=== PATIENT | male | born 1955 | race Caucasian/White ===

== ENCOUNTER 2020-08-26 10:23 | Outpatient (RCR) | payer MEDICARE, OTHER, SELFPAY ==
[2020-08-26] MEDS: COVID-19 VACC, MRNA(PFIZER)/PF 30 MCG/0.3 ML SYRINGE IM (07:33)
[2020-09-16] MEDS: COVID-19 VACC, MRNA(PFIZER)/PF 30 MCG/0.3 ML SYRINGE IM (07:27)
== END 2020-11-25 23:59 ==
LOC: IMMUN 10:23
PROVIDERS: PCP Family Medicine; Visit Provider Family Medicine
DX: Z23 Encounter for immunization (principal)
CPT/HCPCS: 0001A; 0002A; 91300

== ENCOUNTER 2022-08-07 17:26 | Emergency (ER) | payer MEDICARE, OTHER, SELFPAY ==
[2022-08-07 17:27] VITALS: BP 165/102; PULSE 69; RESP 16; TEMP 36.6; O2SAT 98; BMI 20.4
[2022-08-07 17:43] VITALS: O2SAT 98
--- NOTE | 2022-08-07 18:42 | CT_ITS ---
INDICATION: head trauma EXAMINATION: CT BRAIN - CT Head or Brain W/O Contrast Injection TECHNIQUE: Multiple axial images were obtained of the head without intravenous contrast. A radiation dose optimization technique was used for this scan. IV Contrast dosage and agent: None. RADIATION DOSAGE (If Supplied By Facility): CTDIvol = ( 44.99 ) mGy, DLP = ( 779.24 ) mGycm COMPARISON: No relevant prior examinations for comparison FINDINGS: HEMISPHERES: 1. The cerebral parenchyma, ventricular system, subarachnoid spaces have normal configuration and density. There is a normal gyral pattern. There is normal higuera/white differentiation. No midline shift.. 2. There are mild chronic microvascular deep white matter changes. 3. No intraparenchymal mass, hemorrhage, or acute territorial infarct. CEREBELLUM - BRAINSTEM: The cerebellum, brainstem, basilar and suprasellar cisterns have normal appearance. No Chiari malformation. PITUITARY: Infundibulum and pituitary have normal configuration. Midline structures appear normal. CSF SPACES: Appropriate for age. No hydrocephalus. Basal cisterns are patent. VESSELS: 1. Moderate carotid vascular calcifications. 2. No hyperdense vascular signs noted.. ORBITS AND PARANASAL SINUSES: 1. Normal appearance of the bony orbits. Normal appearance of the globes and retrobulbar soft tissues.. 2. Moderate to extensive chronic mucosal thickening in the ethmoid complexes. BONY ELEMENTS: No evidence of fractures involving the cranial vault, orbits or skull base. Nasal skeleton appears intact however there is deformity of the nasal septum with significant 90 degree angulation and there is significant soft tissue swelling at the level of the nose. Findings are suspicious of a nasal septal fracture.. SCALP AND SOFT TISSUES: Normal appearance of the soft tissues of the scalp and the visualized face OTHER: None ASPECTS Score for Acute Strokes: 10 CT/Brain/Head without Contrast IMPRESSION: 1. 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 2. No intracranial evidence of acute traumatic injury. 3. Nasal bones appear intact. There however is significant angulation of the nasal septum suspicious of nasal septal fracture. There is significant soft tissue swelling at the nose. Orbital cha are intact. 4. Chronic ethmoid mucosal thickening is present. No walker fluid or blood identified paranasal sinuses middle ear cavities or mastoid air cells. Electronically Signed: Bigg Perera MD at 19:15 EST ,
--- NOTE | 2022-08-07 18:42 | CT_ITS ---
INDICATION: trauma EXAMINATION: CT FACIAL BONES - CT Maxillofacial W/O Contrast Injection TECHNIQUE: Helically acquired images were obtained of the facial bones. A radiation dose optimization technique was used for this scan. IV Contrast dosage and agent: None. Radiation Dose (provided by facility) CTDIvol (NA ) mGy, DLP ( NA) mGy-cm COMPARISON: CT of the head on the same date. FINDINGS: AREAS OF INTEREST: 1. Significant soft tissue swelling and bruising associated with the nose. 2. The nasal bones appear intact. There is however significant deformity of the nasal septum with 90 degree angulation in the mid bony septum consistent with nasal septal fracture. REMAINING EXAMINATION: ORBITS: 1. Normal appearance the bony cha the orbits. Soft tissue planes including preseptal and post septal soft tissue planes have normal appearance. Normal appearance of the globes, ocular lenses and optic nerves. NASAL SKELETON: As detailed above PARANASAL SINUSES: Chronic mucosal thickening in the ethmoid complexes. SKULL BASE AND ZYGOMATIC ARCHES: Normal, normal alignment, no fractures noted. VISUALIZED MANDIBLE: 1. Normal appearance of the mandibular condyles, TMJs, and the visualized mandible to the level of the symphysis. 2. The visualized dentition appears intact. OTHER: Normal appearance of the deep spaces of the head and visualized upper neck. Airway has normal appearance. CT/Sinus/Facial Bone IMPRESSION: 1. Significant soft tissue swelling/bruising at the level of the nose. The nasal bones are intact however there is deformity of the nasal septum consistent with nasal septal fracture. 2. Chronic ethmoid sinus and callosal thickening. No fluid or blood in the paranasal sinuses middle ear cavities and mastoid air cells. 3. No other evidence of maxillofacial fracture. Normal appearance the orbits. Electronically Signed: Bigg Perera MD at 19:21 EST ,
--- NOTE | 2022-08-07 18:45 | RAD_ITS ---
INDICATION: Injury/Pain EXAMINATION/TECHNIQUE: X-RAY - RIGHT XR Hand Min 3 Views 3 VIEWS COMPARISON: None. FINDINGS: SOFT TISSUES: No soft tissue swelling or gas. No radiopaque foreign body. BONES/JOINTS: No evidence of fracture or dislocation. Mild degenerative changes with osteophyte formation particularly at the 5th PIP, mild periarticular erosions are present at the 5th PIP and DIP. Similar though less extensive changes at the 4th PIP. No acute bony or joint space abnormalities noted. RAD/Hand Min 3 Views IMPRESSION: 1. No acute fracture or dislocation or destructive bony process. 2. Mild degenerative changes as detailed. Electronically Signed: Bigg Perera MD at 19:11 EST ,
[2022-08-07] MEDS: Diphth,Pertuss(Acell),Tet Vac 0.5 ML Vial IM (19:28)
[2022-08-07 19:29] VITALS: RESP 16; O2SAT 97
--- NOTE | 2022-08-07 20:32 | ED.RN ---
THIS RN CALLED PHARMACY DUE TO LIDOCAINE ORDER NOT BEING STOCKED AT 2031. PHARMACY TO SEND UP VIAL.
--- NOTE | 2022-08-07 20:53 | ED.VIS.FALL ---
HPI HPI - Fall History of Present Illness Chief Complaint: Fall Informant: patient Narrative Narrative: Patient is a 67-year-old male presenting for facial injury after mechanical fall. [facility] when he tripped outside. He fell and tried to catch himself with his right hand. He is left-hand dominant. He hit his face. He had injury/trauma to his nose. His nose is not deviated to the right which is not normal for him. He did have a bloody nose but that has since resolved. He sustained a laceration to the outside of his nose. Denies any loss of conscious. Is unsure when his last tetanus was. Is not having any significant pain. No other complaints at this time. Denies any medical history. [facility] Medical History (Updated 08/07/22 @ 20:[address] Margie Renee, ) No acute medical problems Home Medications doxycycline hyclate 100 mg tablet 100 mg PO BID #14 tabs 08/07/22 [Rx Last Taken Unknown] Allergy/AdvReac Type Severity Reaction Status Date / Time Penicillins [PCN] AdvReac Hives Verified 08/07/22 17:29 Social History Smoking Status: Current every day smoker tobacco type: cigarettes ROS ROS ED Constitutional Constitutional ED: Denies chills or fever(s) Eyes Eyes: Denies change in vision ENT ENT ED: Reports other Details: Epistaxis, nose pain Cardiovascular Cardiovascular: Denies chest pain Respiratory/Chest Respiratory/Chest: Denies cough Gastrointestinal Gastrointestinal: Denies nausea or vomiting Integumentary Reports other Details: Laceration to nose Neurologic Neurologic: Denies headache(s), paresthesias or weakness Hematologic/Lymphatic Hematologic/Lymphatic: Denies easy bleeding or easy bruising EXAM Physical Exam Const Vital Signs: 08/07/22 17:27 08/07/22 17:43 08/07/22 19:29 Temperature 97.8 F Temperature Source Temporal Pulse Rate 69 Respiratory Rate 16 16 Respiratory Effort Normal Non-Labored Respiratory Depth Normal Respiratory Pattern Normal Blood Pressure 165/102 H Blood Pressure Mean 123 Pulse Ox 98 98 97 Oxygen Delivery Method Room Air Room Air Room Air 08/07/22 21:11 08/07/22 21:40 Temperature Temperature Source Pulse Rate Respiratory Rate 17 18 Respiratory Effort Respiratory Depth Respiratory Pattern Blood Pressure Blood Pressure Mean Pulse Ox Oxygen Delivery Method Room Air Positive well nourished and well developed General Appearance ED: well developed HEENT Reports normocephalic and TM's normal bilaterally HEENT Narrative: Laceration to nose over the bridge. There is significant soft tissue swelling of the nose and deviation of the nose towards the right. No active epistaxis. There is some blood noted in the posterior oropharynx with no active bleeding. No malocclusion. No trismus. No nasal septal hematoma appreciated. Eyes PERRL and EOMs intact bilaterally Neck full ROM General: Negative for tenderness Chest Wall inspection of chest normal Resp normal respiratory effort and clear to auscultation bilaterally Cardio regular rate, regular rhythm and no murmurs GI non-tender and non-distended Extremity Extremity Narrative: No pinpoint bony tenderness. No obvious deformity of the extremities. Ambulates easily. Pelvis is stable. There is some slight bruising of the right first metacarpal and MCP joints with normal range of motion. No obvious deformity. Mild tenderness to palpation of the area. Neuro oriented x3, moves all extremities, no focal motor deficits and no sensory deficits noted Psych mental status grossly normal and thought process normal Skin Skin Narrative: 2 cm L-shaped full-thickness laceration over the bridge of the nose. There is bleeding involved. MDM MDM MDM Narrative Medical decision making narrative: Patient is evaluated after mechanical fall. He struck his right thumb as well as his nose. Differential includes intracranial hemorrhage, cervical spine fracture, facial bone fracture and hand fracture. Imaging obtained which shows no acute intracranial process but does show significant soft tissue swelling/bruise in the level of the nose with nasal bone intact however there is deformity of the nasal septum consistent with a nasal septal fracture. This is consistent patient's physical exam. Patient's laceration is full-thickness and appears to go through the nasal septum. Complex laceration repair performed, see procedure note.Patient is empirically put on doxycycline (is allergic to penicillins) because of the full-thickness laceration. Tetanus is updated. He declines pain medicine in the ER. He ambulates easily. No other injuries/fractures appreciated. Case is discussed with Dr. Reyes at time of discharge who is agreeable with close outpatient follow-up. He has no further recommendations at this time. Radiography Diagnostic Testing: Clinical Impression(s) from Imaging Studies Brain CT 08/07/22 18:42 IMPRESSION: 1. 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 2. No intracranial evidence of acute traumatic injury. 3. Nasal bones appear intact. There however is significant angulation of the nasal septum suspicious of nasal septal fracture. There is significant soft tissue swelling at the nose. Orbital cha are intact. 4. Chronic ethmoid mucosal thickening is present. No walker fluid or blood identified paranasal sinuses middle ear cavities or mastoid air cells. Electronically Signed: Bigg Perera MD at 19:15 EST , Facial/Sinus 08/07/22 18:42 IMPRESSION: 1. Significant soft tissue swelling/bruising at the level of the nose. The nasal bones are intact however there is deformity of the nasal septum consistent with nasal septal fracture. 2. Chronic ethmoid sinus and callosal thickening. No fluid or blood in the paranasal sinuses middle ear cavities and mastoid air cells. 3. No other evidence of maxillofacial fracture. Normal appearance the orbits. Electronically Signed: Bigg Perera MD at 19:21 EST , Hand X-Ray 08/07/22 18:45 IMPRESSION: 1. No acute fracture or dislocation or destructive bony process. 2. Mild degenerative changes as detailed. Electronically Signed: Bigg Perera MD at 19:11 EST , Procedures Lacerations Nose: Length: 24 in Depth: Sub Q Shape: L-shaped Prep: Chlorhexadine Laceration repair: Irrigated, Lidocaine with epi, Local, Skin sutures, Subcutaneous sutures and Wound explored Irrigated (ml): 200 Suture Information: Ethilon (5-0 x 5 4 simple interrupted sutures, 1x corner suture) and - (5-0 Chromic Gut used to place 2 deep sutures.) Discharge Plan Triage Chief Complaint: Fall ED Provider: Margie Renee Dx/Rx/DC Orders Clinical Impression: Nasal septum fracture, Laceration of nose Instructions: ED Facial Fracture, ED Laceration: All Closures Prescriptions: New doxycycline hyclate 100 mg tablet 100 mg PO BID Qty: 14 0RF Primary Care Provider: Aba Alonzo Referrals: Aba Alonzo MD [Primary Care Provider] - Pavel Noland MD [Med Staff - Active Staff] - 3-5 Days Activity Restrictions/Additional Instructions: Alternate ibuprofen and Tylenol for pain. Please follow-up with ENT, for further evaluation of your nasal septal fracture and discussion for long-term management/repair. Disposition Disposition: Home, Self Care Discharge Date/Time: 08/07/22 21:41
[2022-08-07 21:11] VITALS: RESP 17
[2022-08-07] MEDS: Lidocaine 2% /Epi 1:100 (20ml) 20 ML VIAL INFILT (21:38)
[2022-08-07 21:40] VITALS: RESP 18
== END 2022-08-07 21:41 | disposition home or self-care (01) ==
PROVIDERS: Emergency Provider Emergency Medicine; PCP Family Medicine; Visit Provider Emergency Medicine
DX: S01.21XA Laceration without foreign body of nose, initial encounter (principal); S02.2XXA Fracture of nasal bones, initial encounter for closed fracture; Q21.9 Congenital malformation of cardiac septum, unspecified; F17.210 Nicotine dependence, cigarettes, uncomplicated; W01.0XXA Fall on same level from slipping, tripping and stumbling without subsequent striking against object, initial encounter; Z23 Encounter for immunization
CPT/HCPCS: 13151; 70450; 70486; 73130; 90715; 99282

== ENCOUNTER → 2022-10-25 | Outpatient (CLI) | payer MEDICARE, OTHER, SELFPAY ==
--- NOTE | 2022-10-25 09:33 | EKG12_ITS ---
Test Reason : PRE OP Blood Pressure : / mmHG Vent. Rate : 073 BPM Atrial Rate : 073 BPM P-R Int : 160 ms QRS Dur : 082 ms QT Int : 408 ms P-R-T Axes : 071 072 074 degrees QTc Int : 449 ms Sinus rhythm with Premature supraventricular complexes Nonspecific ST abnormality Abnormal ECG Confirmed by ADWOA THAO, LALA ([id number]), news video editor JAVIER MARTINEZ ([id number]) on 10/25/2022 2:48:39 PM Referred By: Yvon Noland Confirmed By:VESTA ORONA MD
== END | disposition home or self-care (01) ==
LOC: PSN 09:32
PROVIDERS: PCP Family Medicine; Referring Provider Otolaryngology; Visit Provider Otolaryngology
DX: Z01.810 Encounter for preprocedural cardiovascular examination (principal)
CPT/HCPCS: 93005

== ENCOUNTER 2025-03-21 21:10 | Emergency (ER) | payer MEDICARE, OTHER, SELFPAY ==
[2025-03-21 21:10] VITALS: BP 160/96; PULSE 70; RESP 18; TEMP 36.9; O2SAT 97; BMI 20.2
[2025-03-21] MEDS: Lidocaine 2% /Epi 1:100 (20ml) 20 ML VIAL INFILT (22:10)
--- NOTE | 2025-03-21 22:20 | CT_ITS ---
PROCEDURE: SPINE CERVICAL WITHOUT CONTRAS 03/21/2025 REASON FOR EXAM: FALL TECHNIQUE: Procedure Code: CTSPC Modality: CT Procedure: SPINE CERVICAL WITHOUT CONTRAS Coronal and Sagittal reconstruction series were provided. One or more dose reduction techniques were used (e.g., Automated exposure control, adjustment of the mA and/or kV according to patient size, use of iterative reconstruction technique. RADIATION DOSE SUMMARY: CTDlvol: 44.99, 17.40 mGy DLP: 1100 mGycm COMPARISON: None. FINDINGS: BONES: No acute fracture or focal osseous lesion. Grade 1 anterolisthesis of C3 on C4, which appears degenerative in etiology given bilateral facet arthropathy. Straightening of the normal cervical lordosis. DISCS / DEGENERATIVE CHANGES: Disc space narrowing throughout, most pronounced at C4-C5 to C6-C7. Multilevel facet arthropathy and neuroforaminal narrowing. No significant central canal stenosis. SOFT TISSUES: No prevertebral soft tissue swelling. Scattered calcified atherosclerosis. No apical pneumothorax. CT/Spine Cervical without Contras IMPRESSION: 1. No acute cervical spine fracture. 2. Straightening of the cervical spine, may reflect muscle spasm. 3. Chronic degenerative changes. Reading Location: [id number]
--- NOTE | 2025-03-21 22:20 | CT_ITS ---
PROCEDURE: BRAIN/HEAD WITHOUT CONTRAST 03/21/2025 REASON FOR EXAM: HEAD INJURY TECHNIQUE: Procedure Code: CTBR Modality: CT Procedure: BRAIN/HEAD WITHOUT CONTRAST Coronal and Sagittal reconstruction series were provided. One or more dose reduction techniques were used (e.g., Automated exposure control, adjustment of the mA and/or kV according to patient size, use of iterative reconstruction technique. RADIATION DOSE SUMMARY: CTDlvol: 44.99, 17.40 mGy DLP: 1100 mGycm COMPARISON: 08/07/2022 FINDINGS: BRAIN: No acute intraparenchymal hemorrhage. No mass lesion. No CT evidence for acute territorial infarct. No midline shift or extra-axial collection. Mild cerebral volume loss. Patchy periventricular white matter low attenuation, likely microvascular ischemic changes. VENTRICLES: No hydrocephalus. ORBITS: The orbits are unremarkable. SINUSES AND MASTOIDS: Mild ethmoid sinus mucosal thickening bilaterally, improved since the prior study. Small stable right sphenoid sinus retention cyst/polyp. The mastoid air cells are clear. SOFT TISSUES: Mild swelling and laceration in the posterior occipitpparietal parietal scalp. No radiodense foreign body. BONES: The calvarium is intact. No acute osseous abnormality seen. OTHER: Carotid siphon calcification bilaterally. Soft tissue density within the external auditory canals bilaterally, likely cerumen. CT/Brain/Head without Contrast IMPRESSION: 1. No acute intracranial abnormality. 2. Age-related senescent changes. Reading Location: [id number]
--- NOTE | 2025-03-21 22:22 | RAD_ITS ---
PROCEDURE: RIBS UNI MIN 3V W/PA CHEST 03/21/2025 REASON FOR EXAM: PAIN TECHNIQUE: Procedure Code: RADRIB Modality: DX Procedure: RIBS UNI MIN 3V W/PA CHEST COMPARISON: None. FINDINGS: LUNGS AND PLEURA: Calcified granuloma in the right lung. No pleural effusion or pneumothorax seen. HEART AND MEDIASTINUM: The heart size and mediastinal contours are normal. AORTA: Tortuous and calcified thoracic aorta. BONES: Acute fractures involving the right lateral 6th to 10th ribs with subcutaneous emphysema in the adjacent chest wall. RAD/Ribs Uni Min 3V w/PA Chest IMPRESSION: Acute right lateral 6th to 10th rib fractures with adjacent chest wall subcutan eous emphysema. No definite pneumothorax seen. Reading Location: [id number]
[2025-03-21 23:14] VITALS: BP 159/91; PULSE 87; RESP 18; O2SAT 98
--- NOTE | 2025-03-21 23:20 | CT_ITS ---
PROCEDURE: CHEST WITHOUT CONTRAST 03/21/2025 REASON FOR EXAM: RIB FRACTURES WITH ? PNEUMOTHORAX TECHNIQUE: Chest CT without contrast. Coronal and Sagittal reconstruction series were provided. One or more dose reduction techniques were used (e.g., Automated exposure control, adjustment of the mA and/or kV according to patient size, use of iterative reconstruction technique RADIATION DOSE SUMMARY: CTDlvol: 8.99 mGy DLP: 455.82 mGycm COMPARISON: Chest x-ray 03/21/2025. FINDINGS: Hardware: None. Lymph nodes: No lymphadenopathy. Heart and Vasculature: No cardiomegaly. No aortic aneurysm. Coronary Artery Calcifications: Atherosclerotic calcifications of the coronary arteries. Lungs and Airways: Ground-glass densities in the lower lobes may represent atelectasis or pneumonia. Pleura: Small right pleural effusion. No pneumothorax. Upper Abdomen: Left hydronephrosis. Bones: Acute posterior right posterior 7th, 8th and 9th ribs. CT/Chest without Contrast IMPRESSION: Coronary artery calcification (CAC) is is present Acute posterior right posterior 7th, 8th and 9th ribs. Ground-glass densities in the lower lobes may represent atelectasis or pneumoni a. Reading Location: [id number]
--- NOTE | 2025-03-22 00:47 | EDS_ITS ---
HPI History of Present Illness Chief Complaint: Fall Informant: patient and spouse/S.O. Narrative Narrative: Patient is a 69-year-old male who reports no past medical history. He states around 830 this evening he was walking up the stairs holding a glass of water when his cell phone buzzed. He states he turned to look at the cell phone and lost his balance and states he kind of rolled down the stairs. He states he believes he fell roughly 5 or 6 stairs. He states he struck his head but denied any loss of consciousness. He states he was able to get up and ambulate following the trauma. He reports pain and bleeding to his head as well as pain along the right ribs and with concern for underlying injury comes in for evaluation. [facility] Medical History (Updated 03/22/25 @ 00:[address] Laureano Dia, DO) No acute medical problems Home Medications ?Medication ?Instructions ?Recorded ?Last Taken ?Type oxycodone 5 mg tablet 5 mg PO Q6H PRN pain 5 days #20 03/22/25 Unknown Rx tabs Allergy/AdvReac Type Severity Reaction Status Date / Time Penicillins (PCN) AdvReac Hives Verified 03/21/25 21:14 Family History no significant family his Social History Smoking Status: Current every day smoker tobacco type: cigarettes ROS ROS ED Constitutional Constitutional ED: Denies chills or fever(s) Eyes Eyes: Denies blurry vision or change in vision ENT ENT ED: Denies sore throat Cardiovascular Cardiovascular: Reports other Details: Positive right rib pain Negative syncope ; Denies chest pain Respiratory/Chest Respiratory/Chest: Denies cough or dyspnea Gastrointestinal Gastrointestinal: Denies abdominal pain, diarrhea, nausea or vomiting Genitourinary Genitourinary ED: Denies dysuria Musculoskeletal Musculoskeletal: Denies back pain Integumentary Reports other Details: Positive scalp laceration Neurologic Neurologic: Denies headache(s), paresthesias or weakness Hematologic/Lymphatic Hematologic/Lymphatic: Denies easy bleeding or easy bruising EXAM Physical Exam Const Vital Signs: 03/21/25 21:10 03/21/25 21:57 03/21/25 23:14 Temperature 98.4 F Temperature Source Temporal Pulse Rate 70 87 Respiratory Rate 18 18 Respiratory Effort Short of Breath Respiratory Depth Shallow Respiratory Pattern Normal Blood Pressure 160/96 H 159/91 H Blood Pressure Mean 117 113 Pulse Ox 97 98 Oxygen Delivery Method Room Air Room Air Room Air 03/22/25 00:53 Temperature 98.4 F Temperature Source Pulse Rate 71 Respiratory Rate 18 Respiratory Effort Respiratory Depth Respiratory Pattern Blood Pressure 150/86 H Blood Pressure Mean 107 Pulse Ox 97 Oxygen Delivery Method Positive well nourished and well developed General Appearance ED: well developed HEENT HEENT Narrative: There is a vertical linear laceration along the midline lower portion of the occipital scalp that is subcutaneous layer deep with minimal ooze of blood and 5 cm in length. No retained foreign body There is a horizontal linear laceration along the left posterior parietal section of the scalp 2.5 cm in length that is also subcutaneous layer deep with minimal ooze of blood and no retained foreign body No signs of depressed or basilar skull fracture Eyes PERRL and EOMs intact bilaterally Neck supple Neck Narrative: No bony deformity or step-off of the cervical spine No midline tenderness to palpation Chest Wall Chest Narrative: There is reproducible pain in the lateral/mid axillary to posterior rib cage region 7-11 No bony deformity or crepitance Resp normal respiratory effort and clear to auscultation bilaterally Resp Narrative: Breath sounds are diminished throughout secondary to pain but overall clear to auscultation without signs of respiratory distress Cardio regular rate and regular rhythm GI normal to inspection, nondistended, normoactive bowel sounds, non-tender, non- distended and no masses GI Narrative: No overlying abrasions or ecchymosis noted Auscultation: normoactive bowel sounds Palpation: soft Back/Spine Back/Spine Narrative: No bony deformity or step-off of the thoracic or lumbar spine No midline tenderness to palpation Extremity normal to inspection Extremity Narrative: Pelvis is stable there is no shortening or external rotation of either lower extremity No signs of bony injury such as joint effusion or deformity All compartments are soft and compressible going against compartment syndrome Patient can move all extremities without pain or difficulty Neuro oriented x3, CN's II-XII intact bilaterally and no sensory deficits noted Sensorium / Orientation: alert Motor Exam: strength 5/5 throughout Psych mental status grossly normal Skin Skin Narrative: Laceration to the occipital and parietal portion of the scalp as documented above MDM MDM MDM Narrative Medical decision making narrative: Patient arrived to the ER mildly hypertensive but otherwise with stable vitals. He reported a mechanical fall and therefore I felt no need for cardiac or syncope workup. However with the head injury there is concern for traumatic subarachnoid or subdural hemorrhage or skull fracture and potentially a cervical compression fracture. With pain along the right rib cage there is also concern for rib fracture versus pneumothorax. CTs of the head and cervical spine were obtained which revealed no signs of acute trauma. X-ray of the right ribs did show multiple rib fractures with subcutaneous emphysema. In order to ensure there is no pneumothorax I did elect to perform a noncontrast CT of the chest. The better image did show rib fractures but it was less than the x-ray as this showed fractures of the 7th, 8th and 9th rib. There is no pneumothorax noted. The radiologist did mention a right sided pleural effusion but as the patient symptoms only occurred after trauma I do feel this is a pulmonary contusion. He is not on a blood thinner he is not requiring supplemental oxygen he is not in respiratory distress. We did discuss potential admission for his multiple rib fractures and pain control but he states that the 1 oxycodone given to him in the ER has helped his pain. As he does not have physical exam findings to suggest kidney laceration or liver laceration and there is no pneumothorax reported by the radiologist and patient is stating his pain is controlled and lastly he is not hypoxic I do not feel there is need for admission. He will be given oxycodone for pain control at home and is otherwise safe for discharge The patient's scalp lacerations were closed as documented below The lacerations were cleaned with chlorhexidine. The areas were then ane sthetized with 2% lidocaine with epinephrine and local fashion. A total of 6 mL of lidocaine was used between the 2 lacerations. The wounds were copiously irrigated with normal saline. The patient then had 11 monika placed in the longer vertical laceration and 5 monika placed in the horizontal parietal laceration. The monika brought the wound together good approximation. Patient tolerated the procedure well without complication. History & Record Review Discussion w/independent historian: Patient and Significant other Radiography Diagnostic Testing: Clinical Impression(s) from Imaging Studies Brain CT 03/21/25 22:20 IMPRESSION: 1. No acute intracranial abnormality. 2. Age-related senescent changes. Reading Location: [id number] Cervical Spine CT 03/21/25 22:20 IMPRESSION: 1. No acute cervical spine fracture. 2. Straightening of the cervical spine, may reflect muscle spasm. 3. Chronic degenerative changes. Reading Location: [facility] Ribs w/Chest X-Ray 03/21/25 22:22 IMPRESSION: Acute right lateral 6th to 10th rib fractures with adjacent chest wall subcutaneous emphysema. No definite pneumothorax seen. Reading Location: [facility] Chest CT 03/21/25 23:20 IMPRESSION: Coronary artery calcification (CAC) is is present Acute posterior right posterior 7th, 8th and 9th ribs. Ground-glass densities in the lower lobes may represent atelectasis or pneumonia. Reading Location: [facility] Right rib series with 1 view chest as interpreted by the emergency medicine physician reveals fractures of the 7th through 10th ribs without pneumothorax. Discharge Plan Triage Chief Complaint: Fall ED Provider: Laureano Dia Dx/Rx/DC Orders Clinical Impression: Accidental fall, Laceration of scalp, Multiple rib fractures Instructions: ED Rib Fracture, ED Head Injury (Adult), ED Laceration Scalp Stitches or Monika Prescriptions: New oxycodone 5 mg tablet 5 mg PO Q6H PRN (Reason: pain) 5 Days Qty: 20 0RF Primary Care Provider: Pavel Alonzo Referrals: Pavel Alonzo MD [Primary Care Provider, Family Practice] Activity Restrictions/Additional Instructions: Please see your family doctor or return to the ER in 10 to 14 days for staple removal. Continue to use the incentive spirometer to help prevent splinting and pneumonia. Use it once per hour while you are awake. You can take 3 pills of [id number] Advil/ibuprofen up to 4 times a day with your oxycodone for improved pain control. You may also use topical treatments such as lidocaine patches or IcyHot. It would typically take 4 to 6 weeks for your fractures to heal. If you develop a fever notice blood in your urine bruising across your abdomen or have any further concerns please return to the ER for repeat evaluation. Print Language: Fijian Disposition Disposition: Home, Self Care Discharge Date/Time: 03/22/25 00:58
[2025-03-22 00:53] VITALS: BP 150/86; PULSE 71; RESP 18; TEMP 36.9; O2SAT 97
--- OUTSIDE RECORDS SUMMARY | 2025-03-22 00:59 | XMS RPT_ITS | CCD ---
Author Organization [facility] Care Team Providers Care Automation Specialist Name Role Phone Dr. Aba Alonzo Primary Care Provider [phone] Dr. Dyan Orona Attending Provider [phone] Dr. Pavel Noland Referring Provider [phone] Aba Alonzo Primary Care Unavailable Dyan Orona Attending Pavel Garsia Referring Aba Gray Primary Care Unavailable Pavel Noland Referring Pavel Garsia Attending Aba Gray Primary Care Unavailable Margie Renee Attending Unavailable Allergies Allergy Classification Reported Allergen(s) Allergy Type Date of Onset Reaction(s) Facility (2 sources) Penicillins Propensity to adverse reactions 3 [facility] (1 source) Penicillins Drug allergy (disorder) 3 [facility] Repository Medications Current Medications Medication Drug Class(es) Dates Sig (Normalized) Sig (Original) doxycycline hyclate 100 mg oral tablet (2 sources) Tetracycline-clas s Drug Start: 08-07-2022 take 100 mg by mouth twice daily Doxycycline Hyclate Active 100 MG PO TWICE A DAY August 07, 2022 1:00am Problems Problem Classification Problem Date Documented Da te Episodic/Chronic Open wounds of head; neck; and trunk (3 sources) Laceration of nose; Translations: [Laceration without foreign body of nose, initial encounter] Onset: 08-16-2022 08-07-2022 Episodic Skull and face fractures (2 sources) Fractured nasal septum; Translations: [Fracture of nasal bones, initial encounter for closed fracture] 08-07-2022 Episodic Results Test Name Value Interpretation Reference Range Facil ity 12 Lead EKGon 10-25-2022 12 Lead EKG [facility] Cardiovascular Services [address] [place] [address] 12 Lead EKG 10/25/22 0936 MR#: [id number] Acct: [id number] Name: GERALDINE TOLEDO Rep #: [id number] : 1955 67 From: Dyan Orona MD Attending Dr: Dr. Pavel Noland MD Statu s: REG CLI Ordering Dr: Pavel Noland MD Date: 3 Location: [facility] Sex: M C Admitted: Test Reason : PRE OP Blood Pressure : / mmHG Vent. Rate : 073 BPM Atrial Rate : 073 BPM P-R Int : 160 ms QRS Dur : 082 ms QT Int : 408 ms P-R-T Axes : 071 072 074 degrees QTc Int : 449 ms Sinus rhythm with Premature supraventricular complexes Nonspecific ST abnormality Abnormal ECG Confirmed by ADWOA THAO, LALA ([id number]), editorial director JAVIER MARTINEZ ([id number]) on 10/25/2022 2:48:39 PM Referred By: Yvon Noland Confirmed By:VESTA ORONA MD 10/25/22 1448 Date Dyan Orona MD CC: Dr. Aba Alonzo MD; Dr. Pavel Noland MD Signed Normal [facility] Brain/Head without Contrasto n 08-07-2022 Brain/Head without Contrast [facility] Imaging Services [address] [place] [address] Brain/Head without Contrast MR#: [id number] Acct: [id number] Name: GERALDINE TOLEDO Rep #: [id number] : 1955 M 67 From: Bigg Liang PCP: Dr. Aba Alonzo MD Status: REG ER Study: Brain/Head without Contrast Date of Exam: 07/21 02/09 Exam# [id number] Ordering Dr: Margie Renee DO INDICATION: head trauma EXAMINATION: CT BRAIN - CT Head or Brain W/O Contrast Injection TECHNIQUE: Multiple axial images were obtained of the head without intravenous contrast. A radiation dose optimization technique was used for this scan. IV Contrast dosage and agent: None. RADIATION DOSAGE (If Supplied By Facility): CTDIvol = ( 44.99 ) mGy, DLP = ( 779.24 ) mGycm COMPARISON: No relevant prior examinations for comparison FINDINGS: HEMISPHERES: 1. The cerebral parenchyma, ventricular system, subarachnoid spaces have normal configuration and density. There is a normal gyral pattern. There is normal higuera/white differentiation. No midline shift.. 2. There are mild chronic microvascular deep white matter changes. 3. No intraparenchymal mass, hemorrhage, or acute territorial infarct. CEREBELLUM - BRAINSTEM: The cerebellum, brainstem, basilar and suprasellar cisterns have normal appearance. No Chiari malformation. PITUITARY: Infundibulum and pituitary have normal configuration. Midline structures appear normal. CSF SPACES: Appropriate for age. No hydrocephalus. Basal cisterns are patent. VESSELS: 1. Moderate carotid vascular calcifications. 2. No hyperdense vascular signs noted.. ORBITS AND PARANASAL SINUSES: 1. Normal appearance of the bony orbits. Normal appearance of the globes and retrobulbar soft tissues.. 2. Moderate to extensive chronic mucosal thickening in the ethmoid complexes. BONY ELEMENTS: No evidence of fractures involving the cranial vault, orbits or skull base. Nasal skeleton appears intact however there is deformity of the nasal septum with significant 90 degree angulation and there is significant soft tissue swelling at the level of the nose. Findings are suspicious of a nasal septal fracture.. SCALP AND SOFT TISSUES: Normal appearance of the soft tissues of the scalp and the visualized face OTHER: None ASPECTS Score for Acute Strokes: 10 CT/Brain/Head without Contrast IMPRESSION: 1. 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 2. No intracranial evidence of acute traumatic injury. 3. Nasal bones appear intact. There however is significant angulation of the nasal septum suspicious of nasal septal fracture. There is significant soft tissue swelling at the nose. Orbital cha are intact. 4. Chronic ethmoid mucosal thickening is present. No walker fluid or blood identified paranasal sinuses middle ear cavities or mastoid air cells. Electronically Signed: Bigg Perera MD at 19:15 EST , CC: Dr. Aba Alonzo MD; Dr. Margie Renee DO Rug Clipper: Signed Normal [facility] Emergency Department Summary on 08-07-2022 Emergency Department Summary [facility] Medical Records Department [address] [place] [address] Emergency Department Summary 08/07/22 MR#: [id number] Acct: [id number] Name: GERALDINE TOLEDO Rep #: [id number] : 1955 67 From: Margie Renee DO PCP: Dr. Aba Alonzo MD Status:DEP ER Location: ED HPI HPI - Fall History of Present Illness Chief Complaint: Fall Informant: patient Narrative Narrative: Patient is a 67-year-old male presenting for facial injury after mechanical fall. Patient was leaving the [facility] when he tripped outside. He fell and tried to catch himself with his right hand. He is left-hand dominant. He hit his face. He had injury/trauma to his nose. His nose is not deviated to the right which is not normal for him. He did have a bloody nose but that has since resolved. He sustained a laceration to the outside of his nose. Denies any loss of conscious. Is unsure when his last tetanus was. Is not having any significant pain. No other complaints at this time. Denies any medical history. [facility] Medical History (Updated 08/07/22 @ 20:[address] Margie Renee DO) No acute medical problems Home Medications doxycycline hyclate 100 mg tablet 100 mg PO BID #14 tabs 08/07/22 [Rx Last Taken Unknown] Allergy/AdvReac Type Severity Reaction Status Date / Time Penicillins [PCN] AdvReac Hives Verified 08/07/22 17:29 Social History Smoking Status: Current every day smoker tobacco type: cigarettes ROS ROS ED Constitutional Constitutional ED: Denies chills or fever(s) Eyes Eyes: Denies change in vision ENT ENT ED: Reports other Details: Epistaxis, nose pain Cardiovascular Cardiovascular: Denies chest pain Respiratory/Chest Respiratory/Chest: Denies cough Gastrointestinal Gastrointestinal: Denies nausea or vomiting Integumentary Reports other Details: Laceration to nose Neurologic Neurologic: Denies headache(s), paresthesias or weakness Hematologic/Lymphatic Hematologic/Lymphatic: Denies easy bleeding or easy bruising EXAM Physical Exam Const Vital Signs: 08/07/22 17:27 08/07/22 17:43 08/07/22 19:29 Temperature 97.8 F Temperature Source Temporal Pulse Rate 69 Respiratory Rate 16 16 Respiratory Effort Normal Non-Labored Respiratory Depth Normal Respiratory Pattern Normal Blood Pressure 165/102 H Blood Pressure Mean 123 Pulse Ox 98 98 97 Oxygen Delivery Method Room Air Room Air Room Air 08/07/22 21:11 08/07/22 21:40 Temperature Temperature Source Pulse Rate Respiratory Rate 17 18 Respiratory Effort Respiratory Depth Respiratory Pattern Blood Pressure Blood Pressure Mean Pulse Ox Oxygen Delivery Method Room Air Positive well nourished and well developed General Appearance ED: well developed HEENT Reports normocephalic and TM's normal bilaterally HEENT Narrative: Laceration to nose over the bridge. There is significant soft tissue swelling of the nose and deviation of the nose towards the right. No active epistaxis. There is some blood noted in the posterior oropharynx with no active bleeding. No malocclusion. No trismus. No nasal septal hematoma appreciated. Eyes PERRL and EOMs intact bilaterally Neck full ROM General: Negative for tenderness Chest Wall inspection of chest normal Resp normal respiratory effort and clear to auscultation bilaterally Cardio regular rate, regular rhythm and no murmurs GI non-tender and non-distended Extremity Extremity Narrative: No pinpoint bony tenderness. No obvious deformity of the extremities. Ambulates easily. Pelvis is stable. There is some slight bruising of the right first metacarpal and MCP joints with normal range of motion. No obvious deformity. Mild tenderness to palpation of the area. Neuro oriented x3, moves all extremities, no focal motor deficits and no sensory deficits noted Psych mental status grossly normal and thought process normal Skin Skin Narrative: 2 cm L-shaped full-thickness laceration over the bridge of the nose. There is bleeding involved. MDM MDM MDM Narrative Medical decision making narrative: Patient is evaluated after mechanical fall. He struck his right thumb as well as his nose. Differential includes intracranial hemorrhage, cervical spine fracture, facial bone fracture and hand fracture. Imaging obtained which shows no acute intracranial process but does show significant soft tissue swelling/bruise in the level of the nose with nasal bone intact however there is deformity of the nasal septum consistent with a nasal septal fracture. This is consistent patient's physical exam. Patient's laceration is full- thickness and appears to go through the nasal septum. Complex laceration repair performed, see procedure note.Patient is empirically put o (more content not included)... Normal [facility] Hand Min 3 Viewson 3 Hand Min 3 Views [facility] Imaging Services [address] [place] [address] Hand Min 3 Views MR#: [id number] Acct: [id number] Name: GERALDINE TOLEDO Rep #: [id number] : 1955 M 67 From: Bigg Liang PCP: Dr. Aba Alonzo MD Status: REG ER Study: Hand Min 3 Views Date of Exam: 08/07/22 Exam# [id number] Ordering Dr: Margie Renee DO INDICATION: Injury/Pain EXAMINATION/TECHNIQUE: X-RAY - RIGHT XR Hand Min 3 Views 3 VIEWS COMPARISON: None. FINDINGS: SOFT TISSUES: No soft tissue swelling or gas. No radiopaque foreign body. BONES/JOINTS: No evidence of fracture or dislocation. Mild degenerative changes with osteophyte formation particularly at the 5th PIP, mild periarticular erosions are present at the 5th PIP and DIP. Similar though less extensive changes at the 4th PIP. No acute bony or joint space abnormalities noted. RAD/Hand Min 3 Views IMPRESSION: 1. No acute fracture or dislocation or destructive bony process. 2. Mild degenerative changes as detailed. Electronically Signed: Bigg Perera MD at 19:11 EST , CC: Dr. Aba Alonzo MD; Dr. Margie Renee DO Rug Clipper: Signed Normal [facility] Sinus/Facial Boneon 08-07-19 Sinus/Facial Bone [facility] Imaging Services [address] [place] [address] Sinus/Facial Bone MR#: [id number] Acct: [id number] Name: GERALDINE TOLEDO Rep #: [id number] : 1955 M 67 From: Bigg Liang PCP: Dr. Aba Alonzo MD Status: REG ER Study: Sinus/Facial Bone Date of Exam: 08/07/22 Exam# [id number] Ordering Dr: Margie Renee DO INDICATION: trauma EXAMINATION: CT FACIAL BONES - CT Maxillofacial W/O Contrast Injection TECHNIQUE: Helically acquired images were obtained of the facial bones. A radiation dose optimization technique was used for this scan. IV Contrast dosage and agent: None. Radiation Dose (provided by facility) CTDIvol (NA ) mGy, DLP ( NA) mGy-cm COMPARISON: CT of the head on the same date. FINDINGS: AREAS OF INTEREST: 1. Significant soft tissue swelling and bruising associated with the nose. 2. The nasal bones appear intact. There is however significant deformity of the nasal septum with 90 degree angulation in the mid bony septum consistent with nasal septal fracture. REMAINING EXAMINATION: ORBITS: 1. Normal appearance the bony cha the orbits. Soft tissue planes including preseptal and post septal soft tissue planes have normal appearance. Normal appearance of the globes, ocular lenses and optic nerves. NASAL SKELETON: As detailed above PARANASAL SINUSES: Chronic mucosal thickening in the ethmoid complexes. SKULL BASE AND ZYGOMATIC ARCHES: Normal, normal alignment, no fractures noted. VISUALIZED MANDIBLE: 1. Normal appearance of the mandibular condyles, TMJs, and the visualized mandible to the level of the symphysis. 2. The visualized dentition appears intact. OTHER: Normal appearance of the deep spaces of the head and visualized upper neck. Airway has normal appearance. CT/Sinus/Facial Bone IMPRESSION: 1. Significant soft tissue swelling/bruising at the level of the nose. The nasal bones are intact however there is deformity of the nasal septum consistent with nasal septal fracture. 2. Chronic ethmoid sinus and callosal thickening. No fluid or blood in the paranasal sinuses middle ear cavities and mastoid air cells. 3. No other evidence of maxillofacial fracture. Normal appearance the orbits. Electronically Signed: Bigg Perera MD at 19:21 EST , CC: Dr. Aba Alonzo MD; Dr. Margie Renee DO Rug Clipper: Signed Normal [facility] Vital Signs Date Time Vital Sign Value Performing Clinician Faci lity 08-07-2022 21:40-0500 Respiratory rate 18 /min [facility] 08-07-2022 19:29-0500 SaO2% (BldA) [Mass fraction] 97 % [facility] 08-07-2022 17:27-0500 Body height 185.42 cm [facility] 08-07-2022 17:27-0500 Body mass index (BMI) [Ratio] 20.4 kg/m2 [facility] 08-07-2022 17:27-0500 Body temperature 97.8 [degF] [facility] 08-07-2022 17:27-0500 Body weight 70.3 kg [facility] 08-07-2022 17:27-0500 Diastolic blood pressure 102 mm[Hg] [facility] 08-07-2022 17:27-0500 Heart rate 69 /min [facility] 08-07-2022 17:27-0500 Systolic blood pressure 165 mm[Hg] [facility] Encounters Encounter Date Encounter Type Care Provider Facility Start: 11-01-2022 Encounter for preprocedural cardiovascular examination Pavel Noland [facility] Start: 10-25-2022 End: 10-25-2022 ambulatory Aba Alonzo Facility:[facility] Start: 10-25-2022 End: 10-25-2022 Non-patient / Non-visit Dr. Aba Alonzo Work Phone: [facility] Start: 10-25-2022 End: 10-25-[address] Aba Alonzo Work Phone: [facility] Work Phone: Start: 10-25-2022 End: 10-25-[address] Aba Alonzo Work Phone: [facility]Pulmonary Services/Neurology Start: 08-07-2022 End: 08-07-2022 Emergency department patient visit Aba Alonzo Facility:[facility] Start: 08-07-2022 End: 08-07-2022 Emergency department patient visit [facility]Emergency Department Procedures Date Procedure Procedure Detail Performing Clinician Start: 08-07-2022 Plain x-ray of hand Start: 08-07-2022 CT of face Start: 08-07-2022 CT of head without contrast Plan of Treatment Date Care Activity Detail Author Start: 08-07-2022 Repair complex eyelid/nose/ear/lip 1.1-2.5 cm CMPLX RPR E/N/E/L 1.1-2.5 CM [facility] Patient Education ED Facial Frac ture ED Laceration: All Closures [facility] Work Phone: Patient referral [facility] Work Phone: Immunizations Immunization Date Immunization Notes Care Provider Fa adri 08-07-2022 tetanus toxoid, redu mindy diphtheria toxoid, and acellular pertussis vaccine, adsorbed [facility] 09-16-2020 Covid (Pfizer) [facility] 08-26-2020 Covid (Pfizer) [facility] Payers Date Payer Category Payer Medicare [id number] 2022 Self-pay [id number] 2022 Unknown [id number] Unknown [id number] Unknown [id number] Unknown [id number] Social History Date Type Detail Facility Start: 08-07-2022 End: 08-07-2022 Tobacco smoking status NHIS Unknown if ever smoked [facility] Start: 1955 Sex Assigned At Male [facility] Evaluation note Note Date & Type Note Facility Evaluation note No assessment information availa ble [facility] Work Phone: Hospital Discharge instructions Note Date & Type Note Facility Hospital Discharge instructions Additional Instructions Alternate ibuprofen and Tylenol for pain. Please follow-up with ENT, for further evaluation of your nasal septal fracture and discussion for long-term management/repair. [facility] Work Phone: Chief Complaint and Reason for Visit Chief Complaint FALL Chief Complaint FALL PRE OP PRE OP Advance Directives No Advanced Directives Records Found Advance Directive Response Recorded Date/ Time Living Will Yes August 07, 2 023 5:47pm Power of Saturation Equipment Operator Yes August 07, 2022 5:47pm Name of Medical Power of Saturation Equipment Operator SARAH CAHN T- August 07, 2022 5:47pm Advance Directive Response Recorded Date/ Time Name of Medical Power of Saturation Equipment Operator SARAH CHAN T- August 07, 2022 6:47pm Living Will Yes August 07 2 023 6:47pm Power of Saturation Equipment Operator Yes August 07, 2022 6:47pm Summary Purpose Family History No Family History Records Found Additional Source Comments Care Teams (unrecognized sec tion and content) Team Status: Active Member Role Status Dates Dr. Aba Alonzo MD Primary Care Provider Activ e Team Status: Active Member Role Status Dates Dr. Aba Alonzo MD Primary Care Provider Activ e Dr. Dyan Orona MD Attending Provider Activ e Dr. Pavel Noland MD Referring Provider Activ e Team Status: Inactive Member Role Status Dates Dr. Aba Alonzo MD Primary Care Provider Activ e Dr. Margie Renee DO Attending Provider, [place] Active Team Status: Inactive Member Role Status Dates Dr. Aba Alonzo MD Primary Care Provider Activ e Dr. Pavel Noland MD Attending Provider, Refe rring Provider Active Team Status: Inactive Member Role Status Dates Dr. Aba Alonzo MD Primary Care Provider Activ e Dr. Margie Renee DO Emergency Provider Active Goals (unrecognized section and content) Goals may be documented in a n alternate sectionGoals may be documented in an alternate section (unrecognized sect ion and content) No Status Records Found INFORMATION SOURCE (unrecogn ized section and content) DATE CREATED AUTHOR 11/01/2022 [facility] FOR RECORDS PERTAINING TO PATIENTS WHO ARE OR HAVE BEEN ENROLLED IN A CHEMICAL DEPENDENCY/SUBSTANCEABUSE PROGRAM, SOME INFORMATION MAY BE OMITTED. This clinical summary was aggregated from multiple sources. Caution should be exercised in using it in the provision of clinical care. This summary normalizes information from multiple sources, and as a consequence, information in this document may materially change the coding, format and clinical context of patient data. In addition, data may be omitted in some cases. CLINICAL DECISIONS SHOULD BE BASED ON THE PRIMARY CLINICAL RECORDS. [email or web address] [facility]. provides no warranty or guarantee of the accuracy or completeness of information in this document.
== END 2025-03-22 00:58 | disposition home or self-care (01) ==
PROVIDERS: Emergency Provider Emergency Medicine; PCP Family Medicine; Visit Provider Emergency Medicine
DX: S01.01XA Laceration without foreign body of scalp, initial encounter (principal); J90 Pleural effusion, not elsewhere classified; T79.7XXA Traumatic subcutaneous emphysema, initial encounter; S27.329A Contusion of lung, unspecified, initial encounter; F17.210 Nicotine dependence, cigarettes, uncomplicated; W10.9XXA Fall (on) (from) unspecified stairs and steps, initial encounter; S22.41XA Multiple fractures of ribs, right side, initial encounter for closed fracture
CPT/HCPCS: 12002; 70450; 71101; 71250; 72125; 99283